=== PATIENT | female | born 1985 | race Caucasian/White ===

== ENCOUNTER 2017-11-19 05:14 | Inpatient (IN) | payer MEDICAID, OTHER ==
[2017-11-19] MEDS ORDERED: LACTATED RINGERS 1,500 ML IV NR (06:00)
[2017-11-19 06:04] LABS: Hematocrit 36.5 % (30.3-42.9); Hemoglobin 12.4 gm/dl (10.1-14.3); Mean Corpuscular HGB Conc 34 % (30-34); Mean Corpuscular Hemoglobin 29 pg (28-32); Mean Corpuscular Volume 85 fl (79-97); Platelet Count 239 K/mm3 (140-440); Red Blood Count 4.28 M/mm3 (3.65-5.03); Red Cell Distribution Width 17.9 % (13.2-15.2)
[2017-11-19] MEDS ORDERED: BICITRA PO ONE (06:08)
[2017-11-19] MEDS ORDERED: PEPCID IV ONE (06:08)
[2017-11-19] MEDS ORDERED: REGLAN IV ONE (06:08)
[2017-11-19] MEDS ORDERED: SUBLIMAZE IV ONE (06:31)
[2017-11-19] MEDS ORDERED: PITOCin/NS 30 UNIT/500ML 30 UNITS/500 ML BAG IV SCH (07:00)
[2017-11-19] MEDS ORDERED: PITOCin/NS 20 UNIT/1000ML DRIP 20,000 MILLIUNITS/1,000 ML BAG IV ONE (07:06)
[2017-11-19] MEDS ORDERED: ANCEF/STERILE WATER 2 GM/20 ML 2 GM/20 ML SYRINGE IV ONE (07:07)
--- NOTE | 2017-11-19 07:22 | Anesthesia Consultation ---
Anesthesia Consult and Med Hx Date of service: 11/19/17 - Airway Anesthetic Teeth Evaluation: Good ROM Head & Neck: Adequate Mental/Hyoid Distance: Adequate Mallampati Class: Class II Intubation Access Assessment: Probably Good - Pre-Operative Health Status ASA Pre-Surgery Classification: ASA2 Proposed Anesthetic Plan: Epidural, Spinal - Pulmonary Hx Asthma: No COPD: No Hx Pneumonia: No - Cardiovascular System Hx Hypertension: No - Central Nervous System Hx Seizures: No Hx Psychiatric Problems: No - Endocrine Hx Renal Disease: No Hx End Stage Renal Disease: No Hx Hypothyroidism: No Hx Hyperthyroidism: No - Hematic Hx Anemia: No Hx Sickle Cell Disease: No - Other Systems Hx Alcohol Use: No
--- NOTE | 2017-11-19 07:23 | Anesthesia Day of Surgery ---
Anesthesia Day of Surgery - Day of Surgery Patient Examined: Yes Patient H&P Reviewed: Yes Patient is NPO: Yes
--- NOTE | 2017-11-19 08:13 | History and Physical Report ---
History of Present Illness Date of examination: 11/19/17 Date of admission: 11/19/17 05:14 Chief complaint: 39 weeks and 2 days gestation not in labor. History of present illness: Patient is a 32 year old , LMP 02/17/17, EDC 11/24/17 at 39 weeks and 2 days gestation who was admitted for elective repeat C/section. She denies any contractions, fluid leakage or bleeding. She reports good movement. Past History Past Medical History: other (anemia, UTI) Past Surgical History: section Family/Genetic History: none Social history: no significant social history - Obstetrical History Expected Date of Delivery: 11/24/17 Actual Gestation: 39 Week(s) 2 Day(s) : 4 Para: 2 Spontaneous Abortions: 1 Number of Living Children: 2 Medications and Allergies Allergies Allergy/AdvReac Type Severity Reaction Status Date / Time No Known Allergies Allergy Verified 11/22/15 10:37 Home Medications Medication Instructions Recorded Confirmed Last Taken Type Ibuprofen [Motrin 600 MG tab] 600 mg PO Q8H PRN #30 tablet 11/24/15 Unknown Rx Multivitamin with Iron [Tab-A-Gamaliel 1 each PO DAILY #30 tablet 11/24/15 Unknown Rx with Iron] oxyCODONE /ACETAMINOPHEN [Percocet 1 tab PO Q6HR PRN #30 tablet 11/24/15 Unknown Rx 5/325] Active Meds: Active Medications Diphenhydramine HCl (Benadryl) 12.5 mg IV Q2H PRN PRN Reason: Itching Hydromorphone HCl (Dilaudid) 0.5 mg IV Q4H PRN PRN Reason: breakthrough pain > 7/10 Lactated Ringer's (Lactated Ringers) 1,500 mls @ 2,250 mls/hr IV PREOP NR Stop: 11/19/17 23:45 Oxytocin/Sodium Chloride (Pitocin/Ns 30 Unit/500ml) 30 units in 500 mls @ 2 mls /hr IV TITR MARIANO PRN Reason: Protocol Naloxone HCl (Narcan 0.4 Mg/1 Ml) 0.2 mg IV Q2MIN PRN PRN Reason: Res Rate </= 8 or 02 SAT < 92% Ondansetron HCl (Zofran) 4 mg IV Q8H PRN PRN Reason: Nausea And Vomiting Promethazine HCl (Phenergan) 25 mg PO Q6H PRN PRN Reason: Nausea And Vomiting Promethazine HCl (Phenergan) 25 mg NM Q6H PRN PRN Reason: Nausea And Vomiting Sodium Chloride (Sodium Chloride Flush Syringe 10 Ml) 10 ml IV PRN NR - Vital Signs Vital signs: Vital Signs Temp Pulse Resp BP 98.4 F 72 12 109/66 11/19/17 05:50 11/19/17 05:50 11/19/17 05:50 11/19/17 05:50 Temp Pulse Resp BP Pulse Ox 98.4 F 72 12 109/66 11/19/17 05:50 11/19/17 05:54 11/19/17 05:50 11/19/17 05:54 - Physical Exam Cardiovascular: Normal S1, Normal S2 Lungs: Positive: Clear to auscultation Vulva: both: normal Deep Tendon Reflex Grade: Normal +2 - Obstetrical FHR: category 1 Uterine Contraction Monitor Mode: External Cervical Dilatation: 0 Cervical Effacement Percentage: 30 station: -2 Uterine Contraction Pattern: Absent Results Result Diagrams: 11/19/17 05:25 Abnormal lab results 11/19/17 Range/Units 05:25 RDW 17.9 H (13.2-15.2) % All other labs normal. Assessment and Plan - Patient Problems (1) 39 weeks gestation of Current Visit: Yes Status: Acute (2) Previous section Current Visit: Yes Status: Acute Plan to address problem: Admit to labor floor. Repeat C/section. Routine labs, IV fluid. NPO. monitoring. Anesthesia was notified. Risks, benefits of the rpocedure were discussed in detail with the patient such as infection, hemorrhage requiring blood transfusion, injury to the bowel, bladder and blood vessels. She expressed understanding, her questions were answered, she gave her informed consent. (3) Patient declines vaginal after section () Current Visit: Yes Status: Acute
[2017-11-19] MEDS ORDERED: BENADRYL IV PRN (08:30)
[2017-11-19] MEDS ORDERED: ASTRAMORPH PF 10MG/10ML ONE (08:36)
[2017-11-19] MEDS ORDERED: NEO SYNEPHRINE/NS Syringe(OR USE) IV ONE (08:53)
[2017-11-19] MEDS ORDERED: LACTATED RINGERS 1,000 ML IV SCH (09:00)
[2017-11-19] MEDS ORDERED: DILAUDID IV PRN (09:00)
[2017-11-19] MEDS ORDERED: NACL 0.9% IR ONE (09:00)
[2017-11-19] MEDS ORDERED: ZOFRAN IV PRN (09:00)
[2017-11-19] MEDS ORDERED: PHENERGAN PO PRN (09:00)
[2017-11-19] MEDS ORDERED: PHENERGAN PR PRN (09:00)
[2017-11-19] MEDS ORDERED: PEPCID IV NR (09:00)
[2017-11-19] MEDS ORDERED: SODIUM CHLORIDE FLUSH SYRINGE 10 ML IV PRN (09:00)
[2017-11-19] MEDS ORDERED: WATER FOR IRRIG STERILE IR ONE (09:00)
[2017-11-19] MEDS ORDERED: REGLAN IV NR (09:00)
[2017-11-19] MEDS ORDERED: NARCAN 0.4 MG/1 ML IV PRN ×2 (09:00→10:03)
[2017-11-19] MEDS ORDERED: ANCEF/STERILE WATER 2 GM/20 ML 2 GM/20 ML SYRINGE IV NR (09:00)
[2017-11-19] MEDS ORDERED: PITOCin/NS 20 UNIT/1000ML DRIP 20 UNITS/1,000 ML BAG IV SCH ×2 (09:00→11:00)
[2017-11-19] MEDS ORDERED: BICITRA PO NR (09:00)
[2017-11-19] MEDS ORDERED: METHERGINE IM ONE (09:25)
[2017-11-19] MEDS ORDERED: HEMABATE IM ONE (09:30)
[2017-11-19] MEDS ORDERED: NACL 0.9% 1000 ML 1,000 ML ONE (09:54)
[2017-11-19] MEDS ORDERED: ZOFRAN ONE (09:54)
[2017-11-19] MEDS ORDERED: MILK OF MAGNESIA PO PRN (10:03)
[2017-11-19] MEDS ORDERED: TUCKS PAD TP PRN (10:03)
[2017-11-19] MEDS ORDERED: SENOKOT PO PRN (10:03)
--- NOTE | 2017-11-19 10:50 | Operative Report ---
Operative Report Operative Report: Preoperative diagnosis: 1. SIUP at 39 weeks and 2 days gestation not in labor. 2. Previous section. 3. Refused . Postoperative diagnosis: same preoperative diagnosis. Procedure: Repeat low transverse section. Surgeon: Dr. Marquez X Ray Control Equipment Repairer: none Anesthesia: Epidural EBL: 1200 cc IVF: 78774 cc of RL Urine: 100 cc clear Complications: Intraoperative uterine atony responsive to IV Pitocin, IM Methergine, and myometrial Hemabate. Intraoperative findings: 1. Female found in an KAREN position, delivered at 9:16 AM, Apgars 8 at 1 minute and 9 at 5 minutes, weight 6 lbs. 2 oz. Procedure details: Risks, benefits, and alternatives of the procedure were discussed in detail with the patient which included but not limited to the risk of infection, hemorrhage requiring blood transfusion, injury to the bowel bladder and blood vessels. The patient expressed understanding, her questions were answered, and she gave informed consent. The patient was taken to the operating room with an IV fluid infusing Ringer's lactate. In the operating room, she was placed in a sitting position and given epidural anesthesia. She was then placed in a dorsal supine position with a leftward tilt. Loredo catheter and Venodyne boots were placed. The abdomen was washed and she was prepared and draped in the usual sterile fashion. After confirming adequate epidural anesthesia, a Pfannenstiel skin incision was made in the lower abdomen about 2 cm above the pubic symphysis using the scalpel. This incision was carried down to the underlying fascia using the Bovie. The fascia was incised bilaterally in a curvilinear fashion using the Bovie. 2 straight Kocker clamps were used to grasp the upper edge of the fascia from was which the underlying rectus abdominis muscle was dissected off using the Bovie. A similar procedure was done with the lower edge of the fascia to dissect the underlying rectus abdominis muscle. The muscle was bluntly from the midline by pulling. The parietal peritoneum was grasped with 2 hemostat clamps and entered sharply using Metzenbaum scissors. A quick survey of the anatomy revealed a gravid uterus, normal fallopian tubes and ovaries bilaterally. A bladder flap was created. Cam'O retractor was placed at the incision for proper visualization. A low transverse incision was made in the lower uterine segment using the scalpel and extended bilaterally in a curvilinear fashion using bandage scissors. The amniotic sac was ruptured, there was copious amount of clear amniotic fluids. The infant was finding and an KAREN position. The head was delivered followed by the delivery of the shoulders and rest of the body atraumatically at 9:16 AM. The cord was clamped 2 and cut and was handed off to the waiting hull and deck remover. The was a female, Apgars were 8 at 1 minute and 9 at 5 minutes, weight 6 lbs. 2 oz. The placenta was removed manually and it was complete with a three-vessel cord. The uterine cavity was cleaned of clots and debris using dry lap sponges. The uterine incision was repaired in a running locked fashion using 0 Vicryl sutures. A second layer of imbrication was placed. The gutters were cleaned of clots and debris using dry lap sponges. After confirming adequate hemostasis, the instrument was removed from the abdomen. The fascia was closed in a running fashion using 0 Vicryl sutures. The skin was closed with vicky. Sterile dressing was placed. The counts of laps, needles, sponges, and instruments were correct 2. The patient tolerated the procedure well. She was taken to the recovery room in a stable condition.
[2017-11-19] MEDS ORDERED: MORPHINE IV PRN (11:00)
[2017-11-19] MEDS ORDERED: SODIUM CHLORIDE FLUSH SYRINGE 10 ML IV NR (11:00)
[2017-11-19] MEDS ORDERED: MYLICON PO PRN (11:00)
[2017-11-19] MEDS ORDERED: LANSINOH TP PRN (11:00)
[2017-11-19] MEDS ORDERED: TORADOL IV PRN (11:00)
[2017-11-19] MEDS ORDERED: PERCOCET 5/325 PO PRN (11:00)
[2017-11-19] MEDS: TORADOL IV PRN ×2 (12:53→20:49)
[2017-11-19 13:37] LABS: Basophils % (Auto) 0.3 % (0.0-1.8); Eosinophils % (Auto) 0.3 % (0.0-4.3); Hematocrit 29.5 % (30.3-42.9); Hemoglobin 10.2 gm/dl (10.1-14.3); Lymphocytes # (Auto) 1.7 K/mm3 (1.2-5.4); Mean Corpuscular HGB Conc 35 % (30-34); Mean Corpuscular Hemoglobin 30 pg (28-32); Mean Corpuscular Volume 86 fl (79-97); Monocytes # (Auto) 0.7 K/mm3 (0.0-0.8); Platelet Count 221 K/mm3 (140-440); Red Blood Count 3.43 M/mm3 (3.65-5.03); Red Cell Distribution Width 17.8 % (13.2-15.2)
[2017-11-19] MEDS: LACTATED RINGERS 1,000 ML IV SCH (16:50)
[2017-11-19 23:01] LABS: Hematocrit 26.7 % (30.3-42.9)
[2017-11-20] MEDS: LACTATED RINGERS 1,000 ML IV SCH (00:33)
[2017-11-20] MEDS: MOTRIN PO PRN ×3 (06:14→20:32)
[2017-11-20] MEDS ORDERED: LACTATED RINGERS 1,000 ML IV ONE (08:38)
--- NOTE | 2017-11-20 08:58 | Progress Note ---
Assessment and Plan - Patient Problems (1) 39 weeks gestation of Current Visit: Yes Status: Acute (2) Previous section Current Visit: Yes Status: Acute Plan to address problem: Admit to labor floor. Repeat C/section. Routine labs, IV fluid. NPO. monitoring. Anesthesia was notified. Risks, benefits of the rpocedure were discussed in detail with the patient such as infection, hemorrhage requiring blood transfusion, injury to the bowel, bladder and blood vessels. She expressed understanding, her questions were answered, she gave her informed consent. (3) delivery delivered Current Visit: Yes Status: Acute Plan to address problem: Continue post op care. Encourage ambulation. (4) Hypotension Current Visit: Yes Status: Acute Qualifiers: Hypotension type: postprocedural hypotension Qualified Code(s): I95.81 - Postprocedural hypotension Plan to address problem: Patient has ambulated without any dizziness or palpitation. Pulse stable. Current Hb is 9.4. She is not orthostatic. IV bolus ordered. Monitor BP and pulse. Subjective - Subjective Date of service: 11/20/17 Principal diagnosis: S/P repeat C/section Interval history: Patient is a 32 year old who is S/P repear C/section, POD#1. She is doing well, denies any complaint. Her H/H has decreased to 9.4 from 12.0. She has no orthostatic symptoms this AM. She has been to the bathroom without any dizziness or palpitation. She has passed flatus. She is tolerating regular diet well. Objective - Vital Signs Latest vital signs: Vital Signs Temp Pulse Resp BP BP Pulse Ox 11/20/17 05:42 98.9 F 66 18 91/54 11/20/17 00:40 98.9 F 69 18 93/55 11/19/17 20:02 99 F 68 18 98/58 11/19/17 16:08 98.2 F 66 18 94/61 97 11/19/17 12:07 97.6 F 54 L 18 113/89 97 11/19/17 11:34 98.6 F 65 18 120/77 98 11/19/17 11:15 97.7 F 60 15 110/65 99 11/19/17 11:10 61 14 113/62 99 11/19/17 11:05 61 15 113/66 98 11/19/17 11:00 61 16 110/69 99 11/19/17 10:55 60 14 112/68 99 11/19/17 10:50 66 14 102/65 98 11/19/17 10:45 61 16 112/68 99 11/19/17 10:40 64 14 109/67 99 11/19/17 10:34 63 15 107/67 99 11/19/17 10:28 64 16 106/65 99 11/19/17 10:22 65 16 104/60 99 11/19/17 10:20 63 18 104/60 99 11/19/17 10:15 66 16 106/61 99 11/19/17 10:12 97.7 F 68 16 109/55 Intake and Output 11/19/17 11/20/17 11/20/17 23:59 07:59 15:59 Intake Total 360 1264.583 Output Total 2525 600 Balance -2165 664.583 Intake: IV 964.583 Lactated Ringers 1,000 ml 964.583 @ 125 mls/hr IV DIRECT MARIANO Rx#:[id number] Oral 240 Intake, Free Water 120 300 Output: Urine 2525 600 Indwelling Catheter 2525 Void 600 Other: Total, Intake Amount 240 Total, Output Amount 600 600 - Exam Cardiovascular: Present: Normal S1, Normal S2 Lungs: Present: Clear to auscultation Deep Tendon Reflex Grade: Normal +2 - Labs Labs: Abnormal lab results 11/19/17 11/19/17 Range/Units 13:01 22:45 WBC 13.3 H (4.5-11.0) K/mm3 RBC 3.43 L (3.65-5.03) M/mm3 Hgb 9.0 L (10.1-14.3) gm/dl Hct 29.5 L D 26.7 L (30.3-42.9) % MCHC 35 H (30-34) % RDW 17.8 H (13.2-15.2) % Lymph % (Auto) 13.0 L (13.4-35.0) % Seg Neutrophils % 81.4 H (40.0-70.0) % Seg Neutrophils # 10.8 H (1.8-7.7) K/mm3
[2017-11-20] MEDS: FEOSOL PO SCH (11:31)
[2017-11-21] MEDS: MOTRIN PO PRN ×4 (05:27→23:17)
--- NOTE | 2017-11-21 08:31 | Progress Note ---
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 Marquez Call [facility] to schedule appt (2) Anemia during puerperium Current Visit: Yes Status: Acute Plan to address problem: Continue iron therapy Subjective - Subjective Date of service: 11/21/17 Principal diagnosis: S/P repeat C/section Patient reports: appetite normal, voiding normally, pain well controlled, ambulating normally, no dizzy ambulation : doing well Objective - Vital Signs Latest vital signs: Vital Signs Temp Pulse Resp BP BP Pulse Ox 11/21/17 00:00 98.2 F 71 18 91/50 11/20/17 16:17 99.1 F 67 20 92/57 96 11/20/17 12:18 98.4 F 77 18 101/62 99 11/20/17 11:33 70 90/52 97 Intake and Output 11/20/17 11/21/17 11/21/17 23:59 07:59 15:59 Intake Total 240 720 Balance 240 720 Intake: Oral 240 Intake, Free Water 720 Other: Total, Intake Amount 240 # Voids Void 1 1 - Exam Cardiovascular: Present: Regular rate, Normal S1, Normal S2, No murmurs Lungs: Present: Clear to auscultation, Normal air movement Abdomen: Present: normal appearance, soft, normal bowel sounds Vulva: both: normal Uterus: Present: normal, firm, fundal height at umbilicus Extremities: Present: normal Deep Tendon Reflex Grade: Normal +2 Incision: Present: normal, dry, intact
--- NOTE | 2017-11-21 08:39 | Discharge Summary ---
Providers - Providers Date of Admission: 11/19/17 05:14 Date of discharge: 11/22/17 Attending physician: EMILY CLEVELAND MD Primary care physician: EMILY CLEVELAND MD Hospitalization Reason for admission: section (scheduled), IUP at term Delivery: Procedure: repeat low transverse Episiotomy: none Laceration: none Incision: normal, dry, intact Other procedures: none complications: uterine atony Discharge diagnosis: IUP at term delivered Bassett baby: female Hospital course: Complicated by post-procedural hypotension and anemia Condition at discharge: Stable Disposition: [id number] TO HOME OR SELFCARE - Discharge Diagnoses (1) S/P repeat low transverse Status: Acute (2) Anemia during puerperium Status: Acute Plan - Discharge Medications Prescriptions: Ibuprofen [Motrin] 800 mg PO Q8HR PRN #20 tablet PRN Reason: Pain, Mild (1-3) Iron Bis-Gly/FA/C/B12/Ca/Succ [Iron 21/7 Tablet] 1 each PO BID #60 tablet oxyCODONE /ACETAMINOPHEN [Percocet 5/325] 1 tab PO Q6HR PRN #20 tablet PRN Reason: Pain - Provider Discharge Summary Activity: routine, no sex for 6 weeks, no heavy lifting 4 weeks, no strenuous exercise Diet: routine Instructions: routine Additional instructions: [] Smoking cessation referral if applicable(refer to patient education folder for contact #) [] Refer to [facility] Booklet Call your doctor immediately for: * Fever > 100.5 * Heavy vaginal bleeding ( >1 pad per hour) * Severe persistent headache * Shortness of breath * Reddened, hot, painful area to leg or breast * Drainage or odor from incision. 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 Cleveland Call [facility] to schedule appt)
[2017-11-21] MEDS: FEOSOL PO SCH (10:47)
[2017-11-22] MEDS: MOTRIN PO PRN (05:43)
[2017-11-22 10:47] VITALS: BP 89/56
== END 2017-11-22 11:00 | disposition home or self-care (01) | DRG 766 ==
LOC: APU 05:14 → OB 12:36
PROVIDERS: ADMIT Obstetrics & Gynecology; ATTEND Obstetrics & Gynecology
PROC: 10D00Z1 Extraction of Products of Conception, Low, Open Approach (ICD-10-PCS; principal; 2017-11-19)
DX: O34.211 Maternal care for low transverse scar from previous cesarean delivery (principal); Z37.0 Single live birth; Z3A.39 39 weeks gestation of pregnancy; O90.89 Other complications of the puerperium, not elsewhere classified; I95.9 Hypotension, unspecified; O90.81 Anemia of the puerperium; D64.9 Anemia, unspecified
CPT/HCPCS: 36415; 85014; 85018; 85025; 85027; 86592; 86850; 86900; 86901; 99211; G0463; J0690; J1885; J2210; J2270; J2274; J2370; J2405; J2590; J7030; J7120